=== PATIENT | male | born 1940 | race Caucasian/White ===

== ENCOUNTER → 2017-01-12 | Outpatient (CLI) | payer MEDICARE, BC | LOC: COL.RAD 09:08 | DX: Z01.89 Encounter for other specified special examinations (principal) ==

== ENCOUNTER → 2017-05-11 | Outpatient (CLI) | payer MEDICARE, BC | LOC: COL.RAD 08:26 | DX: Z01.89 Encounter for other specified special examinations (principal) ==

== ENCOUNTER 2017-10-08 10:43 | Outpatient (CLI) | payer MEDICARE, BC ==
[~2017-10-08] VITALS: Ht 167.6 cm; Wt 77.3 kg
[2017-10-08] MEDS ORDERED: JANUVIA 100MG100 MG PO (11:00)
[2017-10-08] MEDS ORDERED: LOPRESSOR 225 MG/TAB PO (11:00)
[2017-10-08] MEDS ORDERED: PRILOSEC 20MG20 MG PO (11:00)
[2017-10-08] MEDS ORDERED: MYSOLINE 5050 MG/TAB PO (11:01)
[2017-10-08] MEDS ORDERED: GLUCOPHAGE XR500 M1 PO (11:01)
[2017-10-08] MEDS ORDERED: LIPITOR 40MG TA40 MG PO (11:02)
[2017-10-08] MEDS ORDERED: COZAAR 50MG50 MG/TAB PO (11:02)
[2017-10-08 11:03] VITALS: BP 112/71; PULSE 71; TEMP 97.8
== END 2017-10-08 11:54 | disposition home or self-care (01) ==
LOC: EUO 10:43
DX: C15.5 Malignant neoplasm of lower third of esophagus (principal)

== ENCOUNTER → 2019-02-27 | Outpatient (CLI) | payer MEDICARE, BC ==
[~2019-02-27] MED LIST: COZAAR 50MG50 MG/TAB PO; GLUCOPHAGE XR500 M1 PO; JANUVIA 100MG100 MG PO; LIPITOR 40MG TA40 MG PO; LOPRESSOR 225 MG/TAB PO; MYSOLINE 5050 MG/TAB PO; PRILOSEC 20MG20 MG PO
== END ==
LOC: COL.RAD 09:06
DX: Z01.812 Encounter for preprocedural laboratory examination (principal); C15.5 Malignant neoplasm of lower third of esophagus; E11.9 Type 2 diabetes mellitus without complications; Z90.49 Acquired absence of other specified parts of digestive tract

== ENCOUNTER 2023-08-14 15:25 | Inpatient (IN) | payer MEDICARE, BC ==
[~2023-08-14] VITALS: Ht 170.2 cm; Wt 86.2 kg
[2023-08-14 17:16] LABS: COLLECTION METHOD IN
[2023-08-14 17:30] LABS: HEMATOCRIT 37.7 % (42.0-52.0); HEMOGLOBIN 12.3 g/dl (13.5-18.0); MEAN CELL VOLUME 97 fl (80.0-100.0); MEAN CORPUSCULAR HEMOGLOBIN 32 pg (27-31); MEAN CORPUSCULAR HGB CONC 33 g/dl (33.0-37.0); PLATELET COUNT 248 K/mm3 (130-400); REDCELL DISTRIBUTION WIDTH-CV 14.4 % (11.5-14.5)
[2023-08-14 17:38] LABS: PH 5.5 (5.0-8.5); URINE APPEARANCE Turbid (CLEAR/HAZY); URINE COLOR Amber (YELLOW); URINE GLUCOSE 1+ (NEGATIVE); URINE KETONE Negative (NEGATIVE); URINE PROTEIN(semi-quant) 3+ (NEGATIVE)
[2023-08-14 17:39] LABS: SQUAMOUS EPITHELIAL None Seen /hpf (0-10); URINE BLOOD 3+ (NEGATIVE); URINE NITRATE Negative (NEGATIVE); URINE UROBILINOGEN 0.2 E.U/dL (0.2-1.0)
[2023-08-14 17:40] LABS: URINE BACTERIA Many /hpf (NONE SEEN)
[2023-08-14 17:45] LABS: ALBUMIN 3.8 gm/dL (3.4-4.8); BILIRUBIN,TOTAL 0.4 mg/dL (0.2-1.2); CALCIUM 9.4 mg/dL (8.4-10.2); CREATININE, serum 2.76 mg/dL (0.72-1.25); POTASSIUM 4.1 mmol/L (3.5-4.5); TOTAL PROTEIN 8.1 gm/dL (6.2-8.1)
[2023-08-14 17:56] LABS: HYPOCHROMIA 1+; LYMPHOCYTE 2 % (20.0-51.0); NEUTROPHILS 82 % (42.0-75.2); PLATELET ESTIMATE NORMAL (NORMAL)
[2023-08-14] MEDS ORDERED: TYLENOL 325MG325 MG PO (19:38)
[2023-08-14] MEDS ORDERED: LIPITOR 40MG TA40 MG PO (19:39)
[2023-08-14] MEDS ORDERED: PEPCID 20MG TAB20 MG PO (19:40)
[2023-08-14] MEDS ORDERED: NEURONTIN300 MG/CAP PO (19:41)
[2023-08-14] MEDS ORDERED: GLUCOTROL10 MG PO (19:42)
[2023-08-14] MEDS ORDERED: LEXAPRO 10MG10 MG PO (19:43)
[2023-08-14] MEDS ORDERED: MELATONIN5 M1 PO (19:44)
[2023-08-14] MEDS ORDERED: MYSOLINE 5050 MG/TAB PO ×2 (19:46→20:50)
[2023-08-14] MEDS ORDERED: RISPERDAL 1M1 MG/TAB PO ×2 (19:47→20:51)
[2023-08-14] MEDS ORDERED: NIZORAL SHAMPO120 M1 TP (20:47)
[2023-08-14] MEDS ORDERED: [UNRECOGNIZED DRUG - OTHER] TOP (20:48)
[2023-08-14] MEDS ORDERED: MILK OF MA400 MG/52 PO (20:50)
[2023-08-14] MEDS ORDERED: MIRALAX PA17 GM/Dose PO (20:50)
[2023-08-14] MEDS ORDERED: MULTIPLE VITAMI1 CAP PO (20:50)
[2023-08-14] MEDS ORDERED: PROLIA60 MG/ML SQ (20:51)
[2023-08-14] MEDS ORDERED: VITAMIN D31000 I1 PO (20:51)
--- NOTE | 2023-08-14 21:15 | NUR ---
Patient arrived to the unit at this time with personal belongings in bag. Denies any pain or needs at this time. Patient intake, Med rec, and assessment complete to best ability. Patient is very confused and does not know any history. Attempted to orient patient to room. IV in right AC infusing easily with no difficulties. Call light and personal items in reach. Bed in low position, seizure pads on, bed alarm on.
[2023-08-14 21:23] VITALS: BP 130/68; PULSE 117; TEMP 101.7
[2023-08-14 21:40] VITALS: TEMP 101.6
--- NOTE | 2023-08-14 21:55 | NUR ---
Called [facility] and received DNR and DPOA paperwork via fax, placed on chart. Called KIM Clark, and updated on temp of 101.6 rectal. New orders received for Blood cultures. Called lab and updated on orders and also need for lactic.
[2023-08-14 23:09] VITALS: BP 101/62; BP 113/72; PULSE 114; PULSE 84; TEMP 100.7; TEMP 99.9
[2023-08-15] VITALS (9 sets, daily range): BP systolic 92–139; BP diastolic 61–85; PULSE 71–116; TEMP 97.5–99.4
--- NOTE | 2023-08-15 06:15 | NUR ---
Patient resting in bed. Dr. Fleming placed a 16f younger with urine output. Some bloody drainage with placement. Call light and personal items in reach. Bed in low position.
[2023-08-15 06:31] LABS: BASO % 0.3 % (0.0-2.0); EOS # 0.1 K/mm3 (0.0-0.7); EOS % 1.3 % (0.0-4.0); GRAN # 7.6 K/mm3 (1.4-6.5); GRAN % 75.2 % (42.2-75.2); HEMOGLOBIN 11.4 g/dl (13.5-18.0); LYMPH % 9.9 % (20.0-51.0); MEAN CORPUSCULAR HEMOGLOBIN 31 pg (27-31); MEAN CORPUSCULAR HGB CONC 34 g/dl (33.0-37.0); MEAN PLATELET VOLUME 12.1 fl (7.4-10.4); MONO # 1.3 K/mm3 (0.1-0.6); PLATELET COUNT 210 K/mm3 (130-400); RED BLOOD COUNT 3.69 M/mm3 (4.20-5.60); REDCELL DISTRIBUTION WIDTH-CV 14.2 % (11.5-14.5)
[2023-08-15 06:35] LABS: MEAN CELL VOLUME 92 fl (80.0-100.0)
[2023-08-15 06:42] LABS: CALCIUM 8.8 mg/dL (8.4-10.2); CREATININE, serum 2.22 mg/dL (0.72-1.25); POTASSIUM 3.6 mmol/L (3.5-4.5)
--- NOTE | 2023-08-15 09:00 | NUR ---
Patient is resting in bed, son at the bedside, alert but disoriented, follows commands, took his medications. States he is not hungry, tray on table. Assessment completed, 2L O2. Telemetry in plac, NSR. Bed alarm on.
--- NOTE | 2023-08-15 14:37 | NUR ---
Chairman & Chief Executive Officer met with Patient at bedside to introduce self and provide contact information on the board. Patient presents confused. SW contacted Patient's documented NOK/Son Ernie to conduct intake. Ernie reports that Patient lives in [facility] and is established with PCP James Monae. Patient is reported to be covered by [facility], Patient's son was unable to verify [employer] coverage which is listed in chart. Ernie states that patient was independent with ambulation and toileting and believes that Patieitn is assisted with showering by [facility] staff. Ernie states that Patient has a DPOAHC but he is not sure which sibling is Patient's agent. Patient is anticipated to return to [facility] when medically cleared with Allison.
--- NOTE | 2023-08-15 20:50 | NUR ---
Patient in bed trying to get out and pulling at catheter and IV line. Assessment complete. Denies any pain or needs at this time. Attempted to reorient patient but patient does not understand. IV in right AC infusing with no complications. Call light in reach. Bed in low position with bed alarm on.
--- NOTE | 2023-08-15 21:08 | NUR ---
Patient pulling at catheter and IV line. Attempted to reorient patient, patient does not understand. Patient attempting to get out of bed. TIM Clark called and recieved new orders for 0.5mg IV ativan now. Orders entered.
[2023-08-16 00:09] VITALS: BP_SYST 109
[2023-08-16 03:48] VITALS: BP 119/71; PULSE 93; TEMP 97.2
[2023-08-16 04:58] VITALS: BP_SYST 119
[2023-08-16 06:59] LABS: BASO % 0.2 % (0.0-2.0); EOS # 0.3 K/mm3 (0.0-0.7); EOS % 3.3 % (0.0-4.0); GRAN # 6.8 K/mm3 (1.4-6.5); GRAN % 75.2 % (42.2-75.2); HEMOGLOBIN 11.1 g/dl (13.5-18.0); LYMPH # 0.9 K/mm3 (1.2-3.4); LYMPH % 9.4 % (20.0-51.0); MEAN CELL VOLUME 94 fl (80.0-100.0); MEAN CORPUSCULAR HEMOGLOBIN 31 pg (27-31); MEAN CORPUSCULAR HGB CONC 33 g/dl (33.0-37.0); MEAN PLATELET VOLUME 11.7 fl (7.4-10.4); MONO # 1.1 K/mm3 (0.1-0.6); MONO % 11.6 % (1.7-9.3); PLATELET COUNT 201 K/mm3 (130-400); RED BLOOD COUNT 3.59 M/mm3 (4.20-5.60); REDCELL DISTRIBUTION WIDTH-CV 14.1 % (11.5-14.5)
[2023-08-16 07:00] LABS: HEMATOCRIT 33.7 % (42.0-52.0)
[2023-08-16 07:20] LABS: CREATININE, serum 1.41 mg/dL (0.72-1.25); POTASSIUM 3.5 mmol/L (3.5-4.5)
[2023-08-16 07:45] VITALS: BP 127/79; PULSE 89; TEMP 97.6
[2023-08-16] MEDS ORDERED: ROCEPHIN VIA1 G/VIAL IM (08:49)
[2023-08-16 08:52] VITALS: BP_SYST 127
--- NOTE | 2023-08-16 09:49 | NUR ---
hops farmworker was informed pt can discharge today back to [facility]. NILSON coordinated transport time for 10:45am. NILSON faxed discharge orders. NILSON informed [place] pt has GARETH Lim and joy younger. Discharge Plan: [facility] 10:45am
--- NOTE | 2023-08-16 10:53 | NUR ---
TRANSPORTATION HERE TO TAKE PT BACK TO LONG-TERM, TRANSPORT DID NOT BRING WHEELCHAIR FOR THE PT. THEY ARE BORROWING ONE OF THE HOSPITAL WHEELCHAIRS AND WILL BRING IT BACK AFTER TAKING PT BACK. IV SITE TO R AC WAS DISCONTINUED, CATHETER TIP INTACT. TELEMETRY BOX DISCONNECTED FROM PT. PT WAS INCONTINENT PRIOR TO DISCHARGE, CLEANED AND CHANGED INTO REGULAR CLOTHES. REPORT WAS CALLED TO LONG-TERM GIVEN TO CRISTINA. DISCHARGE PACKET GIVEN TO TRANSPORTATION.
== END 2023-08-16 10:56 | DRG 872 ==
LOC: COL.ER 15:25 → MEDICAL 19:38
PROVIDERS: Family Medicine; Internal Medicine; Nurse Practitioner Family; ADMIT Hospitalist
DX: A41.9 Sepsis, unspecified organism (principal); N17.9 Acute kidney failure, unspecified; F03.911 Unspecified dementia, unspecified severity, with agitation; R33.9 Retention of urine, unspecified; N47.1 Phimosis; N18.9 Chronic kidney disease, unspecified; E78.5 Hyperlipidemia, unspecified; D63.1 Anemia in chronic kidney disease; E11.9 Type 2 diabetes mellitus without complications; Z79.84 Long term (current) use of oral hypoglycemic drugs; F32.A Depression, unspecified; G47.00 Insomnia, unspecified; R45.1 Restlessness and agitation; K21.9 Gastro-esophageal reflux disease without esophagitis; K43.9 Ventral hernia without obstruction or gangrene
CPT/HCPCS: C9113; J0696; J1644; J2060; J7120

== ENCOUNTER 2023-09-13 11:12 | Day surgery (SDC) | payer MEDICARE, BC ==
[~2023-09-13] VITALS: Ht 172.7 cm; Wt 90.9 kg
[~2023-09-13 11:12] MED LIST changes: +GLUCOTROL10 MG PO; +LEXAPRO 10MG10 MG PO; +MELATONIN5 M1 PO; +MILK OF MA400 MG/52 PO; +MIRALAX PA17 GM/Dose PO; +MULTIPLE VITAMI1 CAP PO; +NEURONTIN300 MG/CAP PO; +NIZORAL SHAMPO120 M1 TP; +PEPCID 20MG TAB20 MG PO; +PROLIA60 MG/ML SQ; +RISPERDAL 1M1 MG/TAB PO; +ROCEPHIN VIA1 G/VIAL IM; +TYLENOL 325MG325 MG PO; +VITAMIN D31000 I1 PO; +[UNRECOGNIZED DRUG - OTHER] TOP
[2023-09-13 13:31] VITALS: BP 127/70; PULSE 92
--- NOTE | 2023-09-13 13:31 | NUR ---
PATIENT RETURNS TO ROOM 7 PER CART FROM SURGERY ACCOMPANIED BY CARTER BYERS AND KIKE PORTER. PATIENT AROUSES TO VERBAL STIMULI. SATS 98% ON 2L PER NC. DORSAL SLIT INCISIONS NOTED AND SUTURES INTACT. SCANT BLOODY DRAINAGED NOTED. JOHN CATHETER IN PLACE WITH CLOUDY URINE DRAINING INTO DEPENDENT DRAINAGE BAG. SIDERAILS UP X2 AND CALL LIGHT IN REACH. DAUGHTER IN ROOM. ALLOWED TO REST. DID OPEN EYES TO VERBAL STIMULI. STAT LOCK IN PLACE ON JOHN TO SECURE CATHETER.
[2023-09-13 13:45] VITALS: BP 128/75; PULSE 87
--- NOTE | 2023-09-13 13:45 | NUR ---
CONTINUES TO REST WITH OXYGEN ON AT 2L PER NC. JOHN PATENT. IVF INFUSING AND DAUGHTER REMAINS AT BEDSIDE. SIDERAILS UP X2. OPENS EYES TO VERBAL STIMULI.
[2023-09-13 14:00] VITALS: BP 121/79; PULSE 78
--- NOTE | 2023-09-13 14:00 | NUR ---
MORE AWAKE AND DRINKING WATER AND PEPSI. COOPERATIVE WITH CARES. SMILES AND TALKS WITH DAUGHTER. DENIES PAIN WHEN ASKED.
--- NOTE | 2023-09-13 14:12 | NUR ---
REPORT CALLED TO [facility] TO [facility] AND GIVEN INSTRUCTIONS.
[2023-09-13 14:15] VITALS: BP 138/81; PULSE 81
--- NOTE | 2023-09-13 14:15 | NUR ---
TOLERATES WATER. DENIES PAIN WHEN ASKED.
--- NOTE | 2023-09-13 14:25 | NUR ---
IV FLUIDS ALL INFUSED AND DISCONTINUED. SITE FREE OF REDNESS. HAS DRANK TWO GLASSES OF WATER AND IS SIPPING ON PEPSI.
--- NOTE | 2023-09-13 14:40 | NUR ---
PATIENT IS DRESSED AND ASSISTED INTO WHEELCHAIR. ATTENDS PLACED ON D/T BEING INCONTINENT OF STOOL. NO ACTIVE BLEEDING FROM DORSAL SLIT AND SUTURES IN PLACE. JOHN PATENT WITH CLOUDY YELLOW URINE. SITTING IN WHEELCHAIR AND EATING PUDDING.
--- NOTE | 2023-09-13 14:45 | NUR ---
DISMISSAL INSTRUCTIONS GIVEN TO DAUGHTER AND SIGNED. DAUGHTER IS DPOA AND COPY ON CHART. DAUGHTER STATES THAT SHE NOTIFIED OTHER FAMILY MEMBERS TO ENSURE THAT PATIENT IS DRINKING FLUIDS TO HELP CLEAR URINE WHEN VISITING AT CARE FACILITY.
--- NOTE | 2023-09-13 15:03 | NUR ---
PATIENT DISMISSED BACK TO [facility] PER WHEELCHAIR VAN. PATIENT WAS NOT BROUGHT TO FACILITY WITH A COAT AND ONLY DRESSED IN LONG SLEEVE T-SHIRT AND FLANNEL PANTS. BLANKET WRAPPED AROUND SHOULDERS AND 2ND BLANKET WRAPPED AROUND LEGS DUE TO EXTREME COLD TEMPERATURES. DISMISSAL INSTRUCTIONS SENT WITH COMPOUNDING PHARMACY TECHNICIAN TO BE GIVEN TO NURSING STAFF. BACITRACIN OINTMENT SENT WITH THE PATIENT.
[2023-09-13 15:26] VITALS: BP 109/66; PULSE 98; TEMP 98.1
== END 2023-09-13 15:03 ==
LOC: SDCO 11:12
DX: N47.1 Phimosis (principal); N39.0 Urinary tract infection, site not specified
CPT/HCPCS: A4314; J0665; J0690; J1100; J2371; J2405; J2704; J3010; J7120